=== PATIENT | male | born 1995 | race Two or more races ===

== ENCOUNTER 2025-04-16 14:45 | Outpatient (AMB) | payer SELFPAY ==
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
--- OUTSIDE RECORDS SUMMARY | 2025-04-16 14:49 | XMS_ITS | Encounter Summary ---
Author Organization [facility] Address [address] [place] [address] Phone Care Team Providers Care Computer Repairer Name Role Phone Radhames Godinez MD Primary Care Provider [phone] Encounter Details Date Type Department Care Team (Late st Contact Info) Description 04/13/2022 Procedure [facility], Ct Scan - [address] [address] Social History Tobacco Use Types Packs/Day Years Used Date Smoking Tobacco: Never Smokeless Tobacco: Never Alcohol Use Standard Drinks/Week Comments Not Currently 0 (1 standard drink = 0.6 oz pur e alcohol) Sex and Gender Information Value Date Recorded Sex Assigned at Male 11/02/2021 11:40 PM EST Legal Sex Male 8:57 PM EDT Gender Identity Male 11/02/2021 11:40 PM EST Sexual Orientation Not on file documented as of this encounter Functional Status * Calculated C-SSRS Risk Score (Lifetime/Recent) Answer Date of Assessment Author No Risk Indicated 04/13/2022 8:38 PM EDT Beena Flores RN * [place] Suicide Severity Rating Scale (Screener/Recent Self-Report) Question Answer Date of Assessment Author 1. Wish to be (Past 1 Month) No 022 8:38 PM EDT Beena Hendrix, LUIS MIGUEL 2. Non-Specific Active Suici kalen Thoughts (Past 1 Month) No 04/13/2022 8:38 PM EDT Demarcus Hendrix RN 6. Suicidal Behavior (Lifetime) No 07/15/202 2 8:38 PM EDT Beena Hendrix RN documented as of this encounter Plan of Treatment Not on file documented as of this encounter Visit Diagnoses Not on filedocumented in this encounter Care Teams Computer Repairer Relationship Specialty Start Date End Date Radhames Godinez MD [address] [place] [address] PCP - General Internal Medicine 07/20/20 documented as of this encounter Additional Source Comments The information contained in this document represents components of the legal health record. It is not the complete legal health record.[facility]
--- OUTSIDE RECORDS SUMMARY | 2025-04-16 14:49 | XMS_ITS | Clinical Summary ---
Author Organization [facility] Address [address] [place] [address] Phone Care Team Providers Care Hand Worker Name Role Phone Unavailable Primary Care Provider Unavailabl e Immunizations Immunization Administration Dates Next Due DTaP 04/01/1998, 5,1993,08/17,1993 Hep B, ped/adol 01/22/1994,1993,1993 Hib (PRP-T) 07/27/1994, 4,1993,06/16 IPV 04/29/1998, 4,1993,06/16 Influenza 07/22/2007 Influenza, injectable, quadrivalent 08/03/2008 MMR 04/29/1998,07/27/1994 Meningococcal Conj (Menactra) MCV4P 07/22/2007 Td (adult) (Tenivac), 5 Lf t etanus toxoid, PF, adsorbed 07/01/2003 Tdap 08/03/2008 Varicella 08/03/2008,04/29/1998 Family History Relation Name Status Comments Father Alive age: 55 Mother Alive age: 52 Social History Tobacco Use Types Packs/Day Years Used Date Smoking Tobacco: Never Assessed Sex and Gender Information Value Date Recorded Sex Assigned at Not on file Legal Sex Male 6:09 PM EDT Gender Identity Not on file Sexual Orientation Not on file Last Filed Vital Signs Vital Sign Reading Time Taken Comments Blood Pressure 112/62 12/14/2011 12:00 AM EDT Pulse - - Temperature 36.8 C (98.2 F) 12/14/2011 12:00 AM EDT Respiratory Rate - - Oxygen Saturation - - Inhaled Oxygen Concentration - - Weight 78.9 kg (174 lb) 12/14/2011 12:00 AM EDT Height 170.2 cm (5' 7 ) 12/14/2011 12:00 AM EDT Body Mass Index 27.25 12/14/2011 12:00 AM EDT Plan of Treatment Health Maintenance Due Date Last Done Comments DTaP,Tdap,and Td Vaccines (7 - Td or Tdap) 08/03/2018 08/03/2008, 07/01/2003, 04/01/1998, Additional history exists COVID-19 Vaccine ( season) 2024 Influenza Vaccines (#1) 2025 08/03/2008, 07/22 Hepatitis B Vaccines Completed 01/22/1994, 1993, 1993 HIB Vaccines Completed 07/27/1994, 09/1993, 1993, Additional history exists IPV Vaccines Completed 04/29/1998, 09/1993, 1993, Additional history exists MMR Vaccines Completed 04/29/1998, 07/27/1994 Meningococcal Vaccine Aged Out 07/22/2007 No irina dash eligible based on patient's age to complete this topic Varicella Vaccines Completed 08/03/2008, 04/29/1998 HPV Vaccines Aged Out No longer eligi ble based on patient's age to complete this topic Hepatitis A Vaccines Aged Out No long er eligible based on patient's age to complete this topic Men B Vaccine Aged Out No longer elig ible based on patient's age to complete this topic Pneumococcal Vaccine Aged Out No long er eligible based on patient's age to complete this topic
--- OUTSIDE RECORDS SUMMARY | 2025-04-16 14:49 | XMS_ITS ---
Author Name [facility] Organization Unknown Care Team Organization Name Specialty Phone Email Start Date End Da te [facility],Provider Primary Care 12/16/2022 [facility] PROVIDER SYSTEM Primary Care 12/15/20222022
--- OUTSIDE RECORDS SUMMARY | 2025-04-16 14:49 | XMS_ITS | Clinical Summary ---
Author Organization [facility] Address [address] [place] [address] Care Team Providers Care Ends Breakage Clerk Name Role Phone System, Provider Not In Primary Care Provider Un available Allergies No known active allergies Social History Tobacco Use Types Packs/Day Years Used Date Smoking Tobacco: Never Assessed Sex and Gender Information Value Date Recorded Sex Assigned at Male 12/15/2022 11:00 PM EDT Legal Sex Male 11:01 AM EST Gender Identity Male 12/15/2022 11:00 PM EDT Sexual Orientation Choose not to disclose 2022 11:00 PM EDT Last Filed Vital Signs Vital Sign Reading Time Taken Comments Blood Pressure 119/75 12/15/2022 11:06 PM EDT Pulse 88 12/15/2022 11:06 PM EDT Temperature 36.8 C (98.3 F) 12/15/2022 11:06 PM EDT Respiratory Rate 14 12/15/2022 11:0 6 PM EDT Oxygen Saturation 98% 12/15/2022 11: 06 PM EDT Inhaled Oxygen Concentration - - Weight 77.1 kg (169 lb 15.6 oz) 023 11:06 PM EDT Height 172.7 cm (5' 8 ) 12/15/2022 11:0 6 PM EDT Body Mass Index 25.84 12/15/2022 11:06 PM EDT Plan of Treatment Health Maintenance Due Date Last Done Comments Hepatitis C Virus Screening 1993 HIV Screening 2006 DTaP/Tdap/Td Vaccines (1 - Tdap) 2012 Hepatitis B Vaccines (1 of 3 - 19+ 3-dose series) 2012 COVID-19 Vaccine (2023-2 5 season) 2024 Influenza Vaccine 04/30/2025 08/03/2008, 07/22/2007 HPV Vaccines Aged Out No longer eligi ble based on patient's age to complete this topic Pneumococcal Vaccine: Pediatric (0-5 Years) and At-Risk Patients (6 to 49 Years) Aged Out No longer eligible b ased on patient's age to complete this topic Insurance [facility] Care Teams Ends Breakage Clerk Relationship Specialty Start Date End Date System, Provider Not In PCP - General 12/15/22
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
[2025-04-16 15:06] VITALS: BMI 27.4
== END 2025-04-16 15:42 | disposition home or self-care (01) ==
LOC: HO.HNS 14:46
PROVIDERS: Visit Provider Physician Assistant
DX: Z02.89 Encounter for other administrative examinations (principal)
CPT/HCPCS: 99212

== ENCOUNTER → 2025-04-16 14:45 | Outpatient (BNVA) | payer SELFPAY | PROVIDERS: Visit Provider Physician Assistant | DX: Z02.5 Encounter for examination for participation in sport (principal) | CPT/HCPCS: 99212 ==